=== PATIENT | male | born 1945 | race Two or more races ===

== ENCOUNTER 2018-09-24 13:14 | Outpatient (CLI) | payer OTHER | END 2018-09-24 15:04 | disposition home or self-care (01) | LOC: RAD 13:14 | DX: J20.8 Acute bronchitis due to other specified organisms (principal) ==

== ENCOUNTER 2019-09-20 07:17 | Outpatient (CLI) | payer OTHER | END 2019-09-20 07:20 | disposition home or self-care (01) | LOC: SONOGRAMA 07:17 → MAMO-SONO 08:15 | PROVIDERS: ATTEND Internal Medicine Cardiovascular Disease | DX: I10 Essential (primary) hypertension (principal); R10.84 Generalized abdominal pain ==